=== PATIENT | female | born 1995 | race African-American/Black ===

== ENCOUNTER 2024-07-22 18:02 | Inpatient (IN) | payer MEDICAID, SELFPAY ==
--- NOTE | ~2024-07-22 | XR_ITS ---
EXAMINATION: XR chest 1V portable DATE: 07/24/2024 18:23 INDICATION: Chest discomfort. TECHNIQUE: A single frontal view of the chest was obtained. COMPARISON: CT abdomen and pelvis 07/23/2024 FINDINGS: There is no pneumonia, pleural effusion, or pneumothorax. The heart size is normal. IMPRESSION: 1. No acute cardiopulmonary disease. Reviewed, dictated and finalized at location A.
--- NOTE | ~2024-07-22 | US_ITS ---
EXAMINATION: US pelvic complete w TV DATE: 07/24/2024 14:51 INDICATION: Uterine fibroid. TECHNIQUE: Multiple transabdominal and transvaginal sonographic images of the pelvis were obtained. COMPARISON: CT abdomen and pelvis 07/23/2024 FINDINGS: TRANSABDOMINAL ULTRASOUND: The uterus measures 6.0 x 3.4 x 3.6 cm. There is physiologic free fluid in the pelvis. TRANSVAGINAL ULTRASOUND: The endometrial complex measures 8 mm in thickness. There is a 7.4 x 3.9 x 5.8 cm pedunculated fibroi d. The right ovary measures 2.6 x 1.3 x 2.2 cm. The left ovary measures 2.5 x 1.7 x 2.9 cm. There is normal vascular flow in the ovaries. IMPRESSION: 1. 7.4 cm pedunculated fibroid. Reviewed, dictated and finalized at location A.
--- NOTE | ~2024-07-22 | CT_ITS ---
CT of the Abdomen and Pelvis: Indication: Abdominal pain Technique: 2.5 mm axial scans were obtained through the abdomen and pelvis following intravenous adm inistration of 100 cc of Omnipaque 350. Dose reduction technique was used on this scan by utilizing a utomated exposure control and iterative reconstruction technique. The dose-length product (DLP) was 4 77.40 mGy-cm. Findings: Scans through the lung bases are unremarkable. The liver, spleen, pancreas, gallbladder, adrenals and kidneys are within normal limits. No evidence of aortic aneurysm. No lymphadenopathy. No bowel obstruction. No abscess or free air. Probable under distention of large bowel rather than wa ll thickening. Images through the pelvis were performed. Urinary bladder unremarkable. 6.7 x 4.5 cm probable exophyt ic fibroid present. No other adnexal mass seen. No ascites. Impression: Questionable diffuse large bowel infectious/inflammatory colitis versus underdistention. 6.7 x 4.5 cm exophytic fibroid. Reviewed, dictated and finalized at location . Impression: Questionable diffuse large bowel infectious/inflammatory colitis versus underdi stention. 6.7 x 4.5 cm exophytic fibroid.
--- NOTE | 2024-07-22 18:22 | PC.NURSE ---
Pt throwing herself against the wall & on the ground of entrance to ER, walked outside laying on bench
[2024-07-22 18:30] VITALS: BP 152/106; PULSE 89; RESP 25; TEMP 37; O2SAT 99
[2024-07-22 18:58] VITALS: BP 111/58; PULSE 115; RESP 15; TEMP 36.4; O2SAT 100
[2024-07-23] VITALS (13 sets, daily range): BP systolic 140–184; BP diastolic 82–132; PULSE 101–133; RESP 15–22; TEMP 36.3–36.7; O2SAT 91–100
[2024-07-23] MEDS: SODIUM CHLORIDE 0.9% IV 1,000 ML 999 ML IV CONT ×2 (02:23→03:30)
[2024-07-23] MEDS: ONDANSETRON INJ 4 MG/2 ML VIAL IV PUSH (02:23)
[2024-07-23 02:40] LABS: Basophils Percent Auto 0.1 % (0.2-1.2); Hematocrit 36.3 % (37.0-47.0); Immature Granulocyte Absolute 0.03 K/mm3 (0.00-0.031); Immature Granulocyte Percent A 0.4 % (0-0.5); Lymphocytes Absolute Auto 0.89 K/mm3 (0.9-3.2); Lymphocytes Percent Auto 10.5 % (18.3-44.2); Mean Corpuscular HGB Conc 33.1 g/dl (32-36); Mean Corpuscular Hemoglobin 27.7 pg (26-34); Mean Corpuscular Volume 83.8 fl (80-100); Mean Platelet Volume 9.6 fl (7.4-10.4); Monocytes Absolute Auto 0.2 K/mm3 (0.1-0.6); Monocytes Percent Auto 2.7 % (2.6-8.5); Neutrophils Absolute Auto 7.3 K/mm3 (1.3-6.7); Neutrophils Percent Auto 86.3 % (45.5-73.1); Platelet Count Result 409 k/mm3 (150-375); Red Blood Count 4.33 M/mm3 (4.2-5.4); Red Cell Distribution Width 13.2 % (11.5-14.5); White Blood Count 8.5 K/mm3 (4.5-10.0)
[2024-07-23 02:51] LABS: Alanine Aminotransferase 24 U/L (6-35); Alkaline Phosphatase 53 U/L (38-126); Anion Gap 18 mmol/L (4-12); Aspartate Amino Transferase 33 U/L (14-36); Blood Urea Nitrogen 21 mg/dL (7-17); Calcium 9.9 mg/dL (8.4-10.2); Carbon Dioxide 25 mmol/L (22-30); Chloride 93 mmol/L (98-107); Estimated Glomerular Filt Rate > 60; Glucose 147 mg/dL (65-110); Lipase 179 U/L (23-300); Magnesium 1.7 mg/dL (1.6-2.3); Potassium 3.6 mmol/L (3.4-5.0); Sodium 136 mmol/L (137-145)
[2024-07-23 02:55] LABS: Add Urine Microscopic? YES; Appearance Urine Clear (Clear); Bacteria Urine 1+ /hpf; Bilirubin Urine Negative (Negative); Blood Urine Negative (Negative); Color Urine Dark Yellow (Yellow); Glucose Urine UA Negative (Negative); Ketones Urine 4+ mg/dL (Negative); Leukocyte Esterase Ur Negative LEU/UL (Negative); Need Manual Microscopic Reviewed; Nitrate Urine Negative (Negative); Non Pathogenic Casts 0-2; Protein Urine 2+ mg/dL (Negative); Specific Grav Ur 1.038 (1.001-1.035); Squamous Epithelial Cell Urine Few /hpf (Few); WBC Urine 0-5 /hpf (0-3); pH Urine 6.5 (5.0-9.0)
[2024-07-23 02:57] LABS: Amphetamine Screen Urine Negative (Negative); Barbiturate Screen Urine Negative (Negative); Benzodiazepines Screen Urine Negative (Negative); Cannabinoid Screen Urine Positive (Negative); Cocaine Screen Urine Negative (Negative); Methadone Screen Urine Negative (Negative); Opiate Screen Urine Negative (Negative); Phencyclidine Screen Urine Negative (Negative)
[2024-07-23] MEDS: METOCLOPRAMIDE HCL INJ 10 MG/2 ML VIAL IV PUSH (03:29)
[2024-07-23] MEDS: MORPHINE SULFATE (*CRX) 4 MG/ML INJ IV PUSH (03:30)
[2024-07-23] MEDS: diphenhydrAMINE HCl INJ 50 MG/ML VIAL IV PUSH (05:04)
[2024-07-23] MEDS: MORPHINE SULFATE (*CRX) 2 MG/ML INJ IV PUSH ×5 (05:04→20:00)
--- NOTE | 2024-07-23 05:52 | ED.ABDPAIN ---
HPI - Abdominal Pain General Chief Complaint: Abdominal Pain Stated Complaint: abdominal pain Time Seen by Provider: 07/23/24 02:07 History of Present Illness HPI narrative: Patient is a 29-year-old female who presents to the emergency department this evening complaining of nausea, vomiting, and abdominal pain which she rates it a 10/10. Patient admits that she has been struggling with these symptoms for over 4 years and states that any time the symptoms flare-up she is to come to the emergency department due to the pain and inability to tolerate p.o. intake. Patient admits to marijuana use but states that she developed the symptoms even before she started smoking marijuana. She has been worked up for this multiple times and has an upcoming appointment with a painting machine operator for an EGD and a colonoscopy. Denies any fevers or chills at home. No additional symptoms concerns at this time. Related Data Allergies Allergy/AdvReac Type Severity Reaction Status Date / Time No Known Allergies Allergy Verified 07/23/24 04:37 Review of Systems Review of Systems: All systems are reviewed and are negative unless stated otherwise in the HPI. Exam Narrative: General: Alert, awake, afebrile, in moderate distress, appears uncomfortable. HEENT: PERRL, no rhinorrhea, no post nasal drip, oropharynx clear. Neck: Trachea midline, no JVD, no lymphadenopathy. Cardiovascular: Regular rate and rhythm, no murmurs, rubs or gallops, no peripheral edema. Respiratory: Clear to auscultation bilaterally, no tachypnea, no wheezing, no rhonchi, no rubs, no respiratory distress. Abdomen: Soft, nontender, nondistended, no rebound, no guarding, no peritoneal signs. Musculoskeletal: No joint swelling or deformity, normal muscle tone. Skin: No rashes or petechia, no signs of infection. Neurological: Alert and oriented to person, place, and time. Follows all commands. No focal deficits, speech is clear and fluent. Course Vital Signs Vital signs: Vital Signs Temperature 98.6 F 07/22/24 18:30 Pulse Rate 89 07/22/24 18:30 Respiratory Rate 25 H 07/22/24 18:30 Blood Pressure 152/106 H 07/22/24 18:30 Pulse Oximetry 99 07/22/24 18:30 Oxygen Delivery Room Air 07/22/24 18:30 Temperature 98.1 F 07/23/24 01:47 Pulse Rate 122 H 07/23/24 03:06 Respiratory Rate 15 07/23/24 03:06 Blood Pressure 172/96 H 07/23/24 03:06 Pulse Oximetry 100 07/23/24 03:06 Oxygen Delivery Room Air 07/22/24 18:30 MDM - Abdominal Pain MDM Narrative Medical decision making narrative: The patient was evaluated by myself in the emergency department. History is obtained from patient who is an independent historian and physical exam was performed. External medical records were reviewed at this time. IV was established and pertinent tests were ordered. Patient was administered 2 L IV fluid bolus with normal saline, 4 mg of IV morphine for pain and 4 mg IV Zofran for nausea. Laboratory results obtained revealing an anion gap of 18, otherwise unremarkable. Likely starvation ketosis. Urinalysis revealed 4+ ketones. Imaging studies obtained included CT abdomen and pelvis with IV contrast which was independently interpreted by me revealing mild colonic wall thickening concerning for colitis, which is pending final radiology interpretation. Differential diagnosis considerations include dehydration, electrolyte derangements, gastroenteritis. Comorbidities impacting this visit include history of cyclical vomiting syndrome. I have evaluated and discussed social determinants of health with the patient that could potentially impact subsequent diagnosis and treatment plans. On repeat assessment of the patient, patient continues complain of nausea, vomiting and abdominal pain at this time she was administered 10 mg of IV Reglan, 50 mg of IV Benadryl and 2 mg IV morphine. Patient symptoms have improved since she arrived to our emergency department, how
[2024-07-23] MEDS: SODIUM CHLORIDE 0.9% IV 1,000 ML 100 ML IV CONT (07:00)
[2024-07-23] MEDS: DICYCLOMINE HCL INJ 20 MG/2 ML VIAL IM (08:07)
--- NOTE | 2024-07-23 09:52 | ADMGEN ---
This patient, Alyssa Prescott, was admitted to [facility] Surg Room 306-02. Patient/family oriented to hospital policies and general routines including ID bracelet, bed and alarms, visiting hours, pain management, procedures, bathroom and other care routines, personal items, smoking policy, room service/diet, and visiting hours. Information on how to activate the Rapid Response Team has been discussed. Patient/Family are encouraged to report perceived risks to care and to ask questions if they do not understand what they are told or what they should do.
--- NOTE | 2024-07-23 10:09 | PM.IMHP ---
H&P: HPI History of Present Illness Date/Time: 07/23/24 10:09 Chief Complaint: Abdominal pain Narrative: Patient is a 29-year-old female who presents to the emergency department complaining of nausea, vomiting, and abdominal pain which she rates it a 10/10. Patient admits that she has been struggling with these symptoms for over 4 years and states that any time the symptoms flare-up she is to come to the emergency department due to the pain and inability to tolerate p.o. intake. Patient admits to marijuana use but states that she developed the symptoms even before she started smoking marijuana. In the ED patient received 10 mg of IV Reglan, 50 mg of IV Benadryl and 2 mg IV morphine. She has been worked up for this multiple times and has an upcoming appointment with a clinical statistical programmer for an EGD and a colonoscopy. Patient reports of having sometimes watery bowel movement for the past few years. Denies any association with the blood. No family history of Crohn's disease or ulcerative colitis. No history of taking aspirin or ibuprofen. CT scan shows diffuse large mobile infectious/inflammatory colitis versus under distention. Patient is also has fibroid. Patient aware of the fibroid. Patient was started on antibiotic ceftriaxone and Flagyl. Patient still complains of pain in spite of receiving morphine. Gastroenterology has been consulted and following the recommendation. Review of Systems Review of Systems: All systems are reviewed and are negative unless stated otherwise in the HPI. [facility] Family History Family History (Updated 07/23/24 @ 07:04 by Emily Abebe RN) Grandparent Diabetes mellitus Cerebrovascular accident Social History Social History Smoking status: Current every day smoker Smokeless tobacco user: other Additional smoking assessment comments: daily use of marijuana Alcohol intake: never Substance use type: marijuana Last use: 07/22/24 Do You Feel Safe in your Home?: Yes Lack of Transportation: No Lack of Food: Never True Current Housing: I Have Housing Concerned About Future Housing: No Difficulty Paying Gas/Electric Bills: No Difficulty Paying for Meds: No Currently Unemployed: No Education: High School Diploma/GED Difficulty w/ Childcare or Family Care: No Spiritual care concerns: No Meds Home Medications and Allergies Home Medications Medication Instructions Recorded Confirmed Type pantoprazole 20 mg tablet,delayed 20 mg PO QAM 07/23/24 07/23/24 History release sodium chloride 1,000 mg soluble 1,000 mg PO DAILY 07/23/24 07/23/24 History tablet Allergies Allergy/AdvReac Type Severity Reaction Status Date / Time No Known Allergies Allergy Verified 07/23/24 06:56 Vital Signs Vital Signs - 24 hr 07/22/24 18:58 07/22/24 18:30 07/23/24 01:47 Temperature 97.6 F 98.6 F 98.1 F Pulse Rate 115 H 89 133 H Respiratory Rate 15 25 H 15 Blood Pressure 111/58 L 152/106 H 173/132 H Pulse Oximetry 100 99 100 Oxygen Delivery Room Air 07/23/24 03:06 07/23/24 06:50 07/23/24 03:09 Temperature Pulse Rate 122 H 117 H Respiratory Rate 15 15 18 Blood Pressure 172/96 H 168/104 H Pulse Oximetry 100 100 91 Oxygen Delivery 07/23/24 03:17 07/23/24 03:56 07/23/24 04:00 Temperature Pulse Rate 130 H 122 H 114 H Respiratory Rate 18 20 19 Blood Pressure Pulse Oximetry Oxygen Delivery 07/23/24 04:15 07/23/24 09:30 07/23/24 09:52 Temperature Pulse Rate 107 H Respiratory Rate 15 Blood Pressure 184/112 H 140/100 H Pulse Oximetry Oxygen Delivery Exam Narrative: General: Alert, awake, afebrile, in moderate distress, appears uncomfortable. HEENT: PERRL, no rhinorrhea, no post nasal drip, oropharynx clear. Neck: Trachea midline, no JVD, no lymphadenopathy. Cardiovascular: Regular rate and rhythm, no murmurs, rubs or gallops, no pe
[2024-07-23] MEDS: PANTOPRAZOLE SODIUM IV 40 MG VIAL IV PUSH ×2 (10:33→20:01)
[2024-07-23] MEDS: metroNIDAZOLE 500 MG/ISO 100ML 500 MG/100 ML BAG 100 MG IVPB ×2 (11:11→17:59)
[2024-07-23 11:37] LABS: BEDSIDEPREGUCG Negative
[2024-07-23 14:00] LABS: Ethanol < 10 mg/dL (<10)
[2024-07-23] MEDS: DICYCLOMINE HCL 10 MG CAPSULE 20 MG PO (20:56)
[2024-07-23] MEDS: MELATONIN 5 MG TABLET PO (20:57)
[2024-07-23] MEDS: KETOROLAC 30 MG/ML VIAL (*BKC) IV PUSH (20:57)
[2024-07-23 22:18] LABS: Lactic Acid Reflex 0.8 mmol/L (0.7-2.0)
--- NOTE | 2024-07-23 22:32 | PC.NURSE ---
Pt was in the [place] way with her IV pole and coming to the desk, crying, yelling, and throwing herself around. I asked her what was wrong, she stated, what do you think, I am in pain! Pt proceeded to throw herself into the hallway wall, grabbing the rail and yelling out. Pt was instructed to return to her room. Pt's mother present and standing in doorway watching pt behave this way. Pt's mother states this has been going on for 4 yrs. Pt insisting 2mg of morphine wasn't helping and she needed something else. 1x dose of toradol added, and melatonin. Pt back in room and in bed currently. Educated pt, on pain medications and to notify the nurse if needed vs. coming out into the church yelling, crying, and throwing herself against the wall. Heating pad also added to pt's pain control plan.
[2024-07-24] VITALS (11 sets, daily range): BP systolic 113–196; BP diastolic 66–122; PULSE 85–119; RESP 15–20; TEMP 36.4–36.7; O2SAT 97–100; BMI 27.7
[2024-07-24] MEDS: HYDROmorphone HCL INJ (*CRX) 1 MG/ML SYR 0.5 MG IV PUSH ×6 (01:34→20:20)
[2024-07-24] MEDS: SODIUM CHLORIDE 0.9% IV 1,000 ML 100 ML IV CONT ×3 (01:35→20:27)
[2024-07-24] MEDS: metroNIDAZOLE 500 MG/ISO 100ML 500 MG/100 ML BAG 100 MG IVPB ×3 (01:37→18:22)
[2024-07-24] MEDS: hydrALAZINE HCL 20 MG/ML VIAL 10 MG IV PUSH ×2 (02:12→15:05)
[2024-07-24] MEDS: LORazepam INJ (*CRX) 2 MG/ML VIAL 1 MG IV PUSH (02:14)
[2024-07-24 06:36] LABS: Hematocrit 37.5 % (37.0-47.0); Mean Corpuscular Hemoglobin 27.2 pg (26-34); Mean Platelet Volume 9.6 fl (7.4-10.4); Platelet Count Result 384 k/mm3 (150-375); Red Blood Count 4.41 M/mm3 (4.2-5.4); Red Cell Distribution Width 13.3 % (11.5-14.5)
[2024-07-24 06:48] LABS: Alanine Aminotransferase 19 U/L (6-35); Albumin Level 4.5 g/dL (3.5-5.1); Alkaline Phosphatase 51 U/L (38-126); Anion Gap 15 mmol/L (4-12); Aspartate Amino Transferase 34 U/L (14-36); Bilirubin,Total 0.9 mg/dL (0.2-1.3); Blood Urea Nitrogen 12 mg/dL (7-17); Calcium 9.4 mg/dL (8.4-10.2); Carbon Dioxide 22 mmol/L (22-30); Chloride 95 mmol/L (98-107); Estimated Glomerular Filt Rate > 60; Glucose 102 mg/dL (65-110); Lipase 102 U/L (23-300); Potassium 3.4 mmol/L (3.4-5.0); Sodium 132 mmol/L (137-145)
--- NOTE | 2024-07-24 08:04 | WPDCN ---
Assessment and Plan Assessment and plan (1) Uterine fibroid: Code(s): D25.9 - Leiomyoma of uterus, unspecified Status: Acute Assessment and Plan: 29-year-old female who presented to the hospital with acute onset abdominal pain, nausea, vomiting Patient currently being treated for colitis with antibiotics in IV pain medication CT scan showed a large pedunculated fibroid Patient is aware of this fibroid. Patient states the fibroid has been asymptomatic for several years She denies any bleeding abnormalities 6.7 x 4.5 cm exophytic fibroid Seen on CT Pelvic ultrasound ordered for this a.m. to evaluate uterine fibroid further Discussed manage med options of uterine fibroids Patient declines hormonal contraceptives Discussed potential for myomectomy Would recommend resolution of colitis prior to performing any surgery Would recommend continuing p.o. pain medications on discharge Will discuss surgical management outpatient HPI Data of Consult Date/Time: 07/24/24 08:04 Requesting Physician: Jesus Hastings MD Primary Care Provider: PHYSICIAN NOT ON STAFF Consult Narrative Narrative: Alyssa Prescott is a 29 year old female who was admitted to the hospital after an episode of acute abdominal pain, nausea and vomiting. Imaging showed diffuse colitis and patient is being managed with antibiotics. Imaging also showed a pedunculated fibroid from the uterine body. Patient continues to have intermittent severe abdominal pain despite morphine. Patient resting comfortably in bed this morning. Patient states she has Known about this uterine fibroid for several years. patient states the fibroid was always asymptomatic. Patient reports regular monthly menses. She denies any heavy menstrual bleeding. Patient was offered hormonal contraceptives in the past. Patient is not interested in hormonal contraceptives. Review of Systems Review of Systems: All systems reviewed & are unremarkable except as noted in HPI and below PMFSH Family History Family History (Updated 07/23/24 @ 07:04 by Emily Abebe RN) Grandparent Diabetes mellitus Cerebrovascular accident Social History Social History Smoking status: Current every day smoker Smokeless tobacco user: other Additional smoking assessment comments: daily use of marijuana Alcohol intake: never Substance use type: marijuana Last use: 07/22/24 Do You Feel Safe in your Home?: Yes Lack of Transportation: No Lack of Food: Never True Current Housing: I Have Housing Concerned About Future Housing: No Difficulty Paying Gas/Electric Bills: No Difficulty Paying for Meds: No Currently Unemployed: No Education: High School Diploma/GED Difficulty w/ Childcare or Family Care: No Spiritual care concerns: No Meds Home Medications and Allergies Home Medications Medication Instructions Recorded Confirmed Type pantoprazole 20 mg tablet,delayed 20 mg PO QAM 07/23/24 07/23/24 History release sodium chloride 1,000 mg soluble 1,000 mg PO DAILY 07/23/24 07/23/24 History tablet Allergies Allergy/AdvReac Type Severity Reaction Status Date / Time No Known Allergies Allergy Verified 07/23/24 06:56 Vital Signs Vital Signs - 24 hr 07/23/24 09:30 07/23/24 09:52 07/23/24 18:09 Temperature Pulse Rate Respiratory Rate Blood Pressure 184/112 H 140/100 H 154/117 H Pulse Oximetry Oxygen Delivery 07/23/24 20:00 07/23/24 22:00 07/24/24 01:29 Temperature 97.3 F L Pulse Rate 101 H 101 H Respiratory Rate 22 H Blood Pressure 178/82 H 196/104 H Pulse Oximetry 99 Oxygen Delivery Room Air 07/24/24 03:16 07/23/24 22:06 07/24/24 06:00 Temperature 98 F Pulse Rate 119 H Respiratory Rate 20 Blood Pressure 136/68 162/92 H Pulse Oximetry 99 100 Oxygen Delivery Room Air Exam Const: General: coope
[2024-07-24] MEDS: PANTOPRAZOLE SODIUM IV 40 MG VIAL IV PUSH (08:37)
[2024-07-24] MEDS: ENOXAPARIN 40 MG/0.4 ML SYRINGE SUB-Q (08:37)
--- NOTE | 2024-07-24 09:23 | P.CONGI_ITS ---
I, Simeon Parkinson MD, have provided a substantive portion of the care of this patient and discussed the patient with my Nurse Practitioner. I have reviewed any new relevant radiographic and laboratory results including medications. I agree with her documentation as noted below.?I personally performed the medical decision making and much of the history and exam for this encounter. briefly, here with several days of nausea and vomiting, she had previous episodes, never had EGD. Also uses marijuana. CT scan showed possible colitis vs underdistension- no diarrhea, no lower abdominal pain and no previous epidose of colitis but started on antibiotics. Clinically does not look she had colitis. Will proceed with EGD to assess if PUD, etc. Probably will need colonoscopy as outpatient. Also noted uterine fibroid. Assessment and Plan Assessment and plan (1) Epigastric pain: Code(s): R10.13 - Epigastric pain Status: Acute (2) Nausea & vomiting: Qualifiers: Vomiting type: bilious vomiting Qualified Code(s): R11.14 - Bilious vomiting Code(s): R11.2 - Nausea with vomiting, unspecified Status: Acute (3) Colitis: Code(s): K52.9 - Noninfective gastroenteritis and colitis, unspecified Status: Acute (4) Melena: Code(s): K92.1 - Melena Status: Acute (5) Hyponatremia: Code(s): E87.1 - Hypo-osmolality and hyponatremia Status: Acute (6) Uterine fibroid: Qualifiers: Uterine leiomyoma location: unspecified location Qualified Code(s): D25.9 - Leiomyoma of uterus, unspecified Code(s): D25.9 - Leiomyoma of uterus, unspecified Status: Acute Plan 1. Epigastric abdominal pain/Nausea/Vomiting/Dark stools: Patient admits to intermittent episodes of epigastric pain, nausea, and dark stools that has been occurring over the past 4 years. These episodes typically occur 1 to 2 times a year and can last for a few days before resolving without intervention. She is having nausea that has improved since admission but not resolved. patient states that prior to her ER visit her abdominal pain was rated 10/10. She is still having significant abdominal pain despite pain medication. Denies any recent vomiting. Denies any NSAID, aspirin, or anticoagulant use. She smokes marijuana regularly but denies any correlation with marijuana and symptoms.The patient's symptoms are concerning for possible gastric ulcer or other upper GI pathology. * EGD planned for today to evaluate for possible gastric ulcer or other upper GI pathology * Continue Protonix 40 mg b.i.d. * keep patient NPO * continue supportive care with pain management and antiemetics * Further recommendations to follow endoscopy 2. Possible colitis: Patient has never had a colonoscopy. Family history negative for CRC or IBD. CT findings suggest possible infectious/inflammatory colitis versus underdistention. Patient denies any recent change in bowel habits. She is having regular bowel movements typically every day that are formed and non urgent. Stool studies previously ordered. gynecology on patient's case who recommends colitis treatment prior to considering outpatient uterine fibroid surgery. Abdominal pain does not seem to correlate with CT findings , unlikely that the severity of pain that she is experiencing correlates with mild colitis presentation. stool study results pending * Continue current antibiotic treatment * Monitor symptoms and response to treatment * Consider colonoscopy outpatient if symptoms persist or worsen 3. Uterine fibroid: 6.7 x 4.5 cm exophytic fibroid not
--- NOTE | 2024-07-24 09:23 | WPDGICN ---
Assessment and Plan Assessment and plan (1) Epigastric pain: Code(s): R10.13 - Epigastric pain Status: Acute (2) Nausea & vomiting: Qualifiers: Vomiting type: bilious vomiting Qualified Code(s): R11.14 - Bilious vomiting Code(s): R11.2 - Nausea with vomiting, unspecified Status: Acute (3) Colitis: Code(s): K52.9 - Noninfective gastroenteritis and colitis, unspecified Status: Acute (4) Melena: Code(s): K92.1 - Melena Status: Acute (5) Hyponatremia: Code(s): E87.1 - Hypo-osmolality and hyponatremia Status: Acute (6) Uterine fibroid: Qualifiers: Uterine leiomyoma location: unspecified location Qualified Code(s): D25.9 - Leiomyoma of uterus, unspecified Code(s): D25.9 - Leiomyoma of uterus, unspecified Status: Acute Plan 1. Epigastric abdominal pain/Nausea/Vomiting/Dark stools: Patient admits to intermittent episodes of epigastric pain, nausea, and dark stools that has been occurring over the past 4 years. These episodes typically occur 1 to 2 times a year and can last for a few days before resolving without intervention. She is having nausea that has improved since admission but not resolved. patient states that prior to her ER visit her abdominal pain was rated 10/10. She is still having significant abdominal pain despite pain medication. Denies any recent vomiting. Denies any NSAID, aspirin, or anticoagulant use. She smokes marijuana regularly but denies any correlation with marijuana and symptoms.The patient's symptoms are concerning for possible gastric ulcer or other upper GI pathology. EGD planned for today to evaluate for possible gastric ulcer or other upper GI pathology Continue Protonix 40 mg b.i.d. keep patient NPO continue supportive care with pain management and antiemetics Further recommendations to follow endoscopy 2. Possible colitis: Patient has never had a colonoscopy. Family history negative for CRC or IBD. CT findings suggest possible infectious/inflammatory colitis versus underdistention. Patient denies any recent change in bowel habits. She is having regular bowel movements typically every day that are formed and non urgent. Stool studies previously ordered. gynecology on patient's case who recommends colitis treatment prior to considering outpatient uterine fibroid surgery. Abdominal pain does not seem to correlate with CT findings , unlikely that the severity of pain that she is experiencing correlates with mild colitis presentation. stool study results pending Continue current antibiotic treatment Monitor symptoms and response to treatment Consider colonoscopy outpatient if symptoms persist or worsen 3. Uterine fibroid: 6.7 x 4.5 cm exophytic fibroid noted on CT. Gynecology has recommended outpatient surgical management after acute colitis is treated Thank you very much for allowing me to share in the care this very nice patient. This report may have been done utilizing a voice recognition system. Attempts have been made to correct errors. However, there may be uncorrected grammatical, spelling, and recognition errors present. GI Consult Note Consult date/time: 07/24/24 09:23 Reason for consult: Colitis HPI: This is a pleasant 29-year-old female with a past medical surgical history of asthma who presents to the office today for evaluation of abdominal pain, nausea, and vomiting. She was seen in the emergency room yesterday for these complaints and GI was consulted for colitis. The patient reports intermittent sharp upper abdominal pain occurring 1-2 times per year for the past 4 years, lasting for a few days each episode. The pain is not affected by eating but improves at time with BM's. She reports reflux symptoms when she feels like she's about to vomit, but this is not a regular occurrence. The patient has noticed dark brown stools coinciding with the pain episodes.
[2024-07-24] MEDS: LACTATED RINGERS 1,000 ML 150 ML IV CONT (11:41)
[2024-07-24] MEDS: LABETALOL HCL INJ 100 MG/20 ML VIAL IV PUSH ×2 (11:45→12:12)
[2024-07-24] MEDS: ONDANSETRON INJ 4 MG/2 ML VIAL IV PUSH (12:11)
--- NOTE | 2024-07-24 13:20 | WPDCN ---
Assessment and Plan Assessment and plan (1) Abdominal pain: Code(s): R10.9 - Unspecified abdominal pain Status: Acute Assessment and Plan: patient's abdominal pain seems to be out of proportion to the objective imaging and exam. She has had this chronic pain for several years. She sometimes has issues where she cannot take p.o. because she has so much nausea. GI has seen her and plans on endoscopy. CT scan shows possible colitis which she has been started on IV antibiotics to treat. There certainly is no evidence of pneumatosis of the wall of colon or perforation or abscess. She has a fibroid on the uterus and sales engagement executive has been consulted. The gallbladder appears normal. It does not appear to have a surgical abdomen. Management as per the providers. HPI Data of Consult Date/Time: 07/23/24 Requesting Physician: Jesus Hastings MD Primary Care Provider: PHYSICIAN NOT ON STAFF Consult Narrative Reason for consult: Severe abdominal pain Narrative: Alysas Prescott is a 29 year old female who was admitted to the hospital yesterday for severe abdominal pain. And she has had this pain in 1 form or another for 4 to 5 years. She has been to multiple hospitals with workup for this pain. She was admitted to [facility] this time after CT scan showed possible colitis versus underdistention colic. Gallbladder appeared normal. Stomach appeared to be normal. No other acute findings in the abdomen was noted. In the pelvis a fibroid was noted coming from the uterus. Normal white blood cell count. No fever. Review of Systems Review of Systems: The remainder of the review of systems to include constitutional, HEENT, cardiovascular, respiratory, GI, , integumentary, musculoskeletal, endocrine, immunologic, hematologic, psychiatric, and neurologic are all negative except for which is mentioned above in the HPI. [facility] Family History Family History Grandparent Diabetes mellitus Cerebrovascular accident Social History Social History Smoking status: Current every day smoker Smokeless tobacco user: other Additional smoking assessment comments: daily use of marijuana Alcohol intake: never Substance use type: marijuana Last use: 07/22/24 Do You Feel Safe in your Home?: Yes Lack of Transportation: No Lack of Food: Never True Current Housing: I Have Housing Concerned About Future Housing: No Difficulty Paying Gas/Electric Bills: No Difficulty Paying for Meds: No Currently Unemployed: No Education: High School Diploma/GED Difficulty w/ Childcare or Family Care: No Spiritual care concerns: No Meds Home Medications and Allergies Home Medications Medication Instructions Recorded Confirmed Type pantoprazole 20 mg tablet,delayed 20 mg PO QAM 07/23/24 07/23/24 History release sodium chloride 1,000 mg soluble 1,000 mg PO DAILY 07/23/24 07/23/24 History tablet Allergies Allergy/AdvReac Type Severity Reaction Status Date / Time No Known Allergies Allergy Verified 07/24/24 11:36 Vital Signs Vital Signs - 24 hr 07/23/24 18:09 07/23/24 20:00 07/23/24 22:00 Temperature 36.3 C L Pulse Rate 101 H Respiratory Rate 22 H Blood Pressure 154/117 H 178/82 H Pulse Oximetry 99 Oxygen Delivery Room Air 07/24/24 01:29 07/24/24 03:16 07/23/24 22:06 Temperature Pulse Rate 101 H Respiratory Rate Blood Pressure 196/104 H 136/68 Pulse Oximetry 99 Oxygen Delivery Room Air 07/24/24 06:00 07/24/24 11:37 07/24/24 11:45 Temperature 36.6 C 36.6 C Pulse Rate 119 H 112 H 112 H Respiratory Rate 20 16 Blood Pressure 162/92 H 170/122 H Pulse Oximetry 100 100 Oxygen Delivery Room Air 07/24/24 12:06 07/24/24 08:00 07/24/24 12:48 Temperature Pulse Rate 88 91 Respiratory Rate 20 Blood Pressure 177/111 H
[2024-07-24] MEDS: DICYCLOMINE HCL 10 MG CAPSULE 20 MG PO ×2 (13:59→20:19)
--- NOTE | 2024-07-24 15:12 | PM.IMPN ---
Progress Note: A&P Assessment and Plan (1) Acute dehydration: Code(s): E86.0 - Dehydration Status: Acute (2) Nausea & vomiting: Qualifiers: Vomiting type: bilious vomiting Qualified Code(s): R11.14 - Bilious vomiting Code(s): R11.2 - Nausea with vomiting, unspecified Status: Acute (3) Colitis: Code(s): K52.9 - Noninfective gastroenteritis and colitis, unspecified Status: Acute Plan # Colitis inflammatory vs infectious -underwent EGD today which shows no significant findings -started ceftriaxone and metronidazole -no history of using aspirin or NSAIDs -pantoprazole 40 mg every 12 hours -ordered stool studies ,calprotectin, H pylori, tissue transglutaminase -Bentyl 20 mg q.i.d. p.r.n. -Dilaudid 0.5 q.3 hours p.r.n. -patient pain medication will be de-escalated tomorrow -no evidence of pneumatosis of the wall of colon or perforation or abscess -surgery recommends medical management -consult GI and following the recommendation. #Fibroid -patient is aware of the fibroid -follow-up with OB Gyne as an outpatient as per Solution Developer CT scan showed a large pedunculated fibroid Patient is aware of this fibroid. Patient states the fibroid has been asymptomatic for several years She denies any bleeding abnormalities 6.7 x 4.5 cm exophytic fibroid Seen on CT Pelvic ultrasound ordered for this a.m. to evaluate uterine fibroid further Discussed manage med options of uterine fibroids Patient declines hormonal contraceptives Discussed potential for myomectomy Would recommend resolution of colitis prior to performing any surgery Would recommend continuing p.o. pain medications on discharge Will discuss surgical management outpatient [facility] Impressions Abdomen/Pelvis CT 07/23/24 05:58 Impression: Questionable diffuse large bowel infectious/inflammatory colitis versus underdistention. 6.7 x 4.5 cm exophytic fibroid. Subjective Date/time seen: 07/24/24 15:12 Interval history: Patient was examined at the bedside. Patient reports that she is tired. Patient is less anxious than his stated. Patient was able evaluated by OB Gyne and surgery. Possible myomectomy as OP. Patient underwent upper endoscopy which shows normal. Review of Systems Review of Systems: All systems are reviewed and are negative unless stated otherwise in the HPI. Exam Narrative: General: Alert, awake, afebrile, in moderate distress, appears uncomfortable. HEENT: PERRL, no rhinorrhea, no post nasal drip, oropharynx clear. Neck: Trachea midline, no JVD, no lymphadenopathy. Cardiovascular: Regular rate and rhythm, no murmurs, rubs or gallops, no peripheral edema. Respiratory: Clear to auscultation bilaterally, no tachypnea, no wheezing, no rhonchi, no rubs, no respiratory distress. Abdomen: Soft, nontender, nondistended, no rebound, no guarding, no peritoneal signs. Musculoskeletal: No joint swelling or deformity, normal muscle tone. Skin: No rashes or petechia, no signs of infection. Neurological: Alert and oriented to person, place, and time. Follows all commands. No focal deficits, speech is clear and fluent. Objective Data Vital Signs Vital Signs: Vital Signs - 24 hr 07/23/24 18:09 07/23/24 20:00 07/23/24 22:00 Temperature 97.3 F L Pulse Rate 101 H Respiratory Rate 22 H Blood Pressure 154/117 H 178/82 H Pulse Oximetry 99 Oxygen Delivery Room Air 07/24/24 01:29 07/24/24 03:16 07/23/24 22:06 Temperature Pulse Rate 101 H Respiratory Rate Blood Pressure 196/104 H 136/68 Pulse Oximetry 99 Oxygen Delivery Room Air 07/24/24 06:00 07/24/24 11:37 07/24/24 11:45 Temperature 98 F 97.9 F Pulse Rate 119 H 112 H 112 H Respiratory Rate 20 16 Blood Pressure 162/92 H 170/122 H Pulse Oximetry 100 100 Oxygen Delivery Room Air 07/24/24 12:06 07/24/24 08:00 07/24/24 12:48 Temperature Pulse Rate 88 91 Respiratory Rate 20 Blood Pr
--- NOTE | 2024-07-24 18:03 | ECG_ITS ---
Test Date: 2024-07-24 18:41:46 Measurements Intervals Horner Rate: 106 P: 56 IL: 138 QRS: 34 QRSD: 87 T: 31 QT: 328 QTc: 437 Interpretive Statements SINUS TACHYCARDIA OTHERWISE NORMAL ELECTROCARDIOGRAM No previous ECG available for comparison Electronically Signed On 07-25-2024 07:29:07 CDT by Ji Castellano M.D.
[2024-07-24] MEDS: MELATONIN 5 MG TABLET PO (20:20)
[2024-07-25] MEDS: HYDROmorphone HCL INJ (*CRX) 1 MG/ML SYR 0.5 MG IV PUSH ×8 (00:59→23:07)
[2024-07-25] MEDS: metroNIDAZOLE 500 MG/ISO 100ML 500 MG/100 ML BAG 100 MG IVPB ×3 (04:04→18:19)
[2024-07-25 06:45] VITALS: BP 176/98; PULSE 111; RESP 18; TEMP 36.4; O2SAT 100
[2024-07-25] MEDS: hydrALAZINE HCL 20 MG/ML VIAL 10 MG IV PUSH ×2 (06:59→14:59)
[2024-07-25] MEDS: DICYCLOMINE HCL 10 MG CAPSULE 20 MG PO (08:53)
[2024-07-25] MEDS: ENOXAPARIN 40 MG/0.4 ML SYRINGE SUB-Q (08:53)
[2024-07-25] MEDS: PANTOPRAZOLE 40 MG TABLET PO (08:53)
[2024-07-25 08:57] LABS: Hematocrit 36.4 % (37.0-47.0); Hemoglobin 11.6 g/dL (12.0-15.0); Mean Corpuscular HGB Conc 31.9 g/dl (32-36); Mean Corpuscular Hemoglobin 27.2 pg (26-34); Mean Corpuscular Volume 85.4 fl (80-100); Mean Platelet Volume 9.6 fl (7.4-10.4); Platelet Count Result 386 k/mm3 (150-375); Red Blood Count 4.26 M/mm3 (4.2-5.4); Red Cell Distribution Width 13.3 % (11.5-14.5); White Blood Count 6.5 K/mm3 (4.5-10.0)
--- NOTE | 2024-07-25 09:02 | WPDANESPN ---
Anes - Prog Note Post-Op Date/Time: 07/25/24 09:02 Cardiovascular status: normal Respiratory status: normal Airway patency: baseline Mental status: baseline Post-Op hydration status: normal Vital Signs: Last Vital Signs Temp 36.4 C 07/25/24 06:45 Pulse 111 H 07/25/24 06:45 Resp 18 07/25/24 06:45 BP 176/98 H 07/25/24 06:45 Pulse Ox 100 07/25/24 06:45 O2 Del Method Room Air 07/24/24 20:00 Pain Score (VAS): 0 I/O: Intake & Output 07/24/24 07/25/24 07/25/24 23:59 07:59 15:59 Intake Total 880 472 Balance 880 472 07/25/24 08:00 WBC Pending RBC Pending Hgb Pending Hct Pending MCV Pending MCH Pending MCHC Pending RDW Pending Plt Count Pending MPV Pending Sodium Pending Potassium Pending Chloride Pending Carbon Dioxide Pending Anion Gap Pending BUN Pending Creatinine Pending Estim Creat Clear Calc Pending Estimated GFR Pending Glucose Pending Calcium Pending Total Bilirubin Pending AST Pending ALT Pending Alkaline Phosphatase Pending Total Protein Pending Albumin Pending Post-procedural complaints: none Patient Feedback: Patient satisfied with anesthetic care.
[2024-07-25 09:31] LABS: Alanine Aminotransferase 16 U/L (6-35); Albumin Level 4.2 g/dL (3.5-5.1); Alkaline Phosphatase 44 U/L (38-126); Anion Gap 11 mmol/L (4-12); Aspartate Amino Transferase 32 U/L (14-36); Bilirubin,Total 0.8 mg/dL (0.2-1.3); Blood Urea Nitrogen 9 mg/dL (7-17); Calcium 8.7 mg/dL (8.4-10.2); Carbon Dioxide 24 mmol/L (22-30); Chloride 95 mmol/L (98-107); Estimated CRCL calculation 124 ml/min; Estimated Glomerular Filt Rate > 60; Glucose 107 mg/dL (65-110); Potassium 3.2 mmol/L (3.4-5.0); Sodium 130 mmol/L (137-145)
[2024-07-25] MEDS: SIMETHICONE 80 MG TAB.CHEW PO ×3 (13:16→20:09)
[2024-07-25 14:00] VITALS: BP 174/122; PULSE 110; RESP 18; TEMP 36.2; O2SAT 97
--- NOTE | 2024-07-25 14:50 | PM.IMPN ---
Progress Note: A&P Assessment and Plan (1) Acute dehydration: Code(s): E86.0 - Dehydration Status: Acute (2) Nausea & vomiting: Qualifiers: Vomiting type: bilious vomiting Qualified Code(s): R11.14 - Bilious vomiting Code(s): R11.2 - Nausea with vomiting, unspecified Status: Acute (3) Colitis: Code(s): K52.9 - Noninfective gastroenteritis and colitis, unspecified Status: Acute Plan # Colitis inflammatory vs infectious -underwent EGD today which shows no significant findings -started ceftriaxone and metronidazole -no history of using aspirin or NSAIDs -pantoprazole 40 mg every 12 hours -ordered stool studies ,calprotectin, H pylori, tissue transglutaminase -Bentyl 20 mg q.i.d. p.r.n. -Dilaudid 0.5 q.3 hours p.r.n. -patient pain medication will be de-escalated tomorrow -no evidence of pneumatosis of the wall of colon or perforation or abscess -surgery recommends medical management -consult GI and following the recommendation. #Fibroid -patient is aware of the fibroid -follow-up with OB Gyne as an outpatient as per Sales Manager CT scan showed a large pedunculated fibroid Patient is aware of this fibroid. Patient states the fibroid has been asymptomatic for several years She denies any bleeding abnormalities 6.7 x 4.5 cm exophytic fibroid Seen on CT Pelvic ultrasound ordered for this a.m. to evaluate uterine fibroid further Discussed manage med options of uterine fibroids Patient declines hormonal contraceptives Discussed potential for myomectomy Would recommend resolution of colitis prior to performing any surgery Would recommend continuing p.o. pain medications on discharge Will discuss surgical management outpatient [facility] Impressions Abdomen/Pelvis CT 07/23/24 05:58 Impression: Questionable diffuse large bowel infectious/inflammatory colitis versus underdistention. 6.7 x 4.5 cm exophytic fibroid. Subjective Date/time seen: 07/25/24 14:50 Interval history: Patient reports of doing better than yesterday but still she has some pain. As the case with Dr. Gutiérrez who reports that the upper endoscopy is fine. Currently the patient is tolerating diet and will be likely discharged tomorrow. Review of Systems Review of Systems: All systems are reviewed and are negative unless stated otherwise in the HPI. Exam Narrative: General: Alert, awake, afebrile, in moderate distress, appears uncomfortable. HEENT: PERRL, no rhinorrhea, no post nasal drip, oropharynx clear. Neck: Trachea midline, no JVD, no lymphadenopathy. Cardiovascular: Regular rate and rhythm, no murmurs, rubs or gallops, no peripheral edema. Respiratory: Clear to auscultation bilaterally, no tachypnea, no wheezing, no rhonchi, no rubs, no respiratory distress. Abdomen: Soft, nontender, nondistended, no rebound, no guarding, no peritoneal signs. Musculoskeletal: No joint swelling or deformity, normal muscle tone. Skin: No rashes or petechia, no signs of infection. Neurological: Alert and oriented to person, place, and time. Follows all commands. No focal deficits, speech is clear and fluent. Objective Data Vital Signs Vital Signs: Vital Signs - 24 hr 07/24/24 20:00 07/24/24 21:05 07/25/24 06:45 Temperature 98.1 F 97.6 F Pulse Rate 113 H 111 H Respiratory Rate 16 18 Blood Pressure 158/98 H 176/98 H Pulse Oximetry 99 100 Oxygen Delivery Room Air 07/25/24 08:00 Temperature Pulse Rate Respiratory Rate Blood Pressure Pulse Oximetry Oxygen Delivery Room Air Intake/Output Intake/Output: Intake & Output 07/22/24 07/23/24 07/24/24 07/25/24 23:59 23:59 23:59 23:59 Intake Total 2250 3030 722 Balance 2250 3030 722 Meds/Results Medications: Active Medications Generic Name Dose Route Start Last Admin Trade Name Freq PRN Reason Stop Dose Admin Dicyclomine HCl 20 mg 07/23/24 20:19 07/25/24 08:53 Dicyclomine Hcl 10 Mg Capsule PO
[2024-07-25] MEDS: CALCIUM CARBONATE (TUMS) 500 MG (200 MG ELEMENTAL) PO (15:41)
[2024-07-25] MEDS: ONDANSETRON INJ 4 MG/2 ML VIAL IV PUSH ×2 (15:41→20:10)
[2024-07-25] MEDS: amLODIPine BESYLATE 10 MG TABLET PO (15:41)
--- NOTE | 2024-07-25 18:18 | WPDGIPROGNO ---
Progress Note: A&P Assessment and Plan (1) Cyclic vomiting syndrome: Code(s): R11.15 - Cyclical vomiting syndrome unrelated to migraine Status: Acute Assessment and Plan: presentation c/w cyclic vomiting needs to stop using marijuana fluids, antiemetics egd negative when able to eat more then can go home (2) Marijuana dependence: Code(s): F12.20 - Cannabis dependence, uncomplicated Status: Acute (3) Abdominal pain: Code(s): R10.9 - Unspecified abdominal pain Status: Acute Assessment and Plan: I do not think that she has colitis, started empirically on abx probably we can do colonoscopy in few more weeks as outpatient (4) Hyponatremia: Code(s): E87.1 - Hypo-osmolality and hyponatremia Status: Acute (5) Uterine fibroid: Qualifiers: Uterine leiomyoma location: unspecified location Qualified Code(s): D25.9 - Leiomyoma of uterus, unspecified Code(s): D25.9 - Leiomyoma of uterus, unspecified Status: Acute Subjective Date/time seen: 07/25/24 18:18 Interval history: normal egd yesterday including biopsies still with nausea she says that will come in cycles and when she is at home then will take warm shower- she smokes marijuana in regular basis Review of Systems Review of Systems: All systems reviewed & are unremarkable except as noted in HPI and below Exam Const: General: comfortable and no acute distress HENMT: Face/Nose/Sinus: Normal nares present Eyes: General: appearance normal, both eyes and all related structures Neck: Neck: no JVD Resp: Auscultation: clear to auscultation bilaterally Cardio: Rate: regular rate Rhythm: regular rhythm GI: Inspection: non-distended GI Palp: Yes Soft to palpation and No Tenderness to palpation present (GI) Auscultation: normal bowel sounds Skin: General skin exam: normal color Neuro: General: gait normal Speech: normal speech Extrem: General: normal to inspection Psych: Mental Status: mental status grossly normal Objective Data Vital Signs Vital Signs: Vital Signs - 24 hr 07/24/24 20:00 07/24/24 21:05 07/25/24 06:45 Temperature 98.1 F 97.6 F Pulse Rate 113 H 111 H Respiratory Rate 16 18 Blood Pressure 158/98 H 176/98 H Pulse Oximetry 99 100 Oxygen Delivery Room Air 07/25/24 08:00 07/25/24 14:00 Temperature 97.1 F L Pulse Rate 110 H Respiratory Rate 18 Blood Pressure 174/122 H Pulse Oximetry 97 Oxygen Delivery Room Air Intake/Output Intake/Output: Intake & Output 07/22/24 07/23/24 07/24/24 07/25/24 23:59 23:59 23:59 23:59 Intake Total 2250 3030 722 Balance 2250 3030 722 Meds/Results Medications: Active Medications Generic Name Dose Route Start Last Admin Trade Name Freq PRN Reason Stop Dose Admin Amlodipine Besylate 10 mg 07/25/24 15:16 07/25/24 15:41 Amlodipine Besylate 10 Mg Tablet PO 10 mg DAILY MARCELINO Administration Calcium Carbonate 200 mg 07/25/24 15:16 07/25/24 15:41 Calcium Carbonate (Tums) 500 Mg (200 Mg Elemental) PO 200 mg Q6H PRN Administration Indigestion Dicyclomine HCl 20 mg 07/23/24 20:19 07/25/24 08:53 Dicyclomine Hcl 10 Mg Capsule PO 20 mg QID PRN Administration Abdominal Cramping Enoxaparin Sodium 40 mg 07/24/24 09:00 07/25/24 08:53 Enoxaparin 40 Mg/0.4 Ml Syringe SUB-Q 40 mg DAILY MARCELINO Administration Hydralazine HCl 10 mg 07/24/24 14:51 07/25/24 14:59 Hydralazine Hcl 20 Mg/Ml Vial IV PUSH 10 mg Q6H PRN Administration Blood Pressure - High Hydromorphone HCl 0.5 mg 07/23/24 20:18 07/25/24 16:25 Hydromorphone Hcl Inj (*Crx) 1 Mg/Ml Syr IV PUSH 0.5 mg Q3H PRN Administration Pain Rated 7-10 Ceftriaxone Sodium 1 gm in 50 mls @ 100 mls/hr 07/23/24 10:05 07/25/24 09:23 Rocephin 1 Gm/Ns 50 Ml IVPB Infused QAM MARCELINO Infusion Metronidazole 500 mg in 100 mls @ 100 mls/hr 07/23/24 11:00 07/25/24 11:20 Flagyl
[2024-07-25] MEDS: MELATONIN 5 MG TABLET PO (20:09)
[2024-07-25 21:29] VITALS: BP 146/89; PULSE 115; RESP 14; TEMP 36.9; O2SAT 100
[2024-07-26] MEDS: ONDANSETRON INJ 4 MG/2 ML VIAL IV PUSH ×4 (02:36→21:41)
[2024-07-26] MEDS: HYDROmorphone HCL INJ (*CRX) 1 MG/ML SYR 0.5 MG IV PUSH ×7 (02:36→21:41)
[2024-07-26] MEDS: metroNIDAZOLE 500 MG/ISO 100ML 500 MG/100 ML BAG 100 MG IVPB ×3 (02:37→18:32)
[2024-07-26] MEDS: DICYCLOMINE HCL 10 MG CAPSULE 20 MG PO ×5 (03:41→21:50)
[2024-07-26] MEDS: PROMETHAZINE HCL 25 MG/ML AMPUL 12.5 MG IV PUSH (03:42)
[2024-07-26 06:00] VITALS: BP 173/103; PULSE 102; RESP 22; TEMP 36.6; O2SAT 100
[2024-07-26] MEDS: hydrALAZINE HCL 20 MG/ML VIAL 10 MG IV PUSH (06:00)
[2024-07-26 06:56] LABS: Hematocrit 38.8 % (37.0-47.0); Hemoglobin 12.4 g/dL (12.0-15.0); Mean Corpuscular Volume 84.3 fl (80-100); Mean Platelet Volume 9.3 fl (7.4-10.4); Platelet Count Result 396 k/mm3 (150-375); Red Cell Distribution Width 13.3 % (11.5-14.5); White Blood Count 7.1 K/mm3 (4.5-10.0)
[2024-07-26 07:12] LABS: Alanine Aminotransferase 15 U/L (6-35); Albumin Level 4.3 g/dL (3.5-5.1); Alkaline Phosphatase 54 U/L (38-126); Anion Gap 11 mmol/L (4-12); Aspartate Amino Transferase 26 U/L (14-36); Bilirubin,Total 0.6 mg/dL (0.2-1.3); Blood Urea Nitrogen 6 mg/dL (7-17); Calcium 9.2 mg/dL (8.4-10.2); Carbon Dioxide 28 mmol/L (22-30); Chloride 91 mmol/L (98-107); Estimated CRCL calculation 124 ml/min; Estimated Glomerular Filt Rate > 60; Glucose 97 mg/dL (65-110); Potassium 2.9 mmol/L (3.4-5.0); Sodium 130 mmol/L (137-145)
[2024-07-26 08:04] VITALS: BP 152/81
[2024-07-26] MEDS: amLODIPine BESYLATE 10 MG TABLET PO (08:06)
[2024-07-26] MEDS: SIMETHICONE 80 MG TAB.CHEW PO ×4 (08:06→21:42)
[2024-07-26] MEDS: PANTOPRAZOLE 40 MG TABLET PO (08:07)
--- NOTE | 2024-07-26 10:13 | WPDGIPROGNO ---
Progress Note: A&P Assessment and Plan (1) Cyclic vomiting syndrome: Code(s): R11.15 - Cyclical vomiting syndrome unrelated to migraine Status: Acute Assessment and Plan: presentation c/w cyclic vomiting needs to stop using marijuana continue supportive care with fluids, antiemetics egd negative when able to eat more then can go home today also hypokalemia- repleting (2) Marijuana dependence: Code(s): F12.20 - Cannabis dependence, uncomplicated Status: Acute (3) Abdominal pain: Code(s): R10.9 - Unspecified abdominal pain Status: Acute Assessment and Plan: I do not think that she has colitis but started empirically on abx, stool sample pending, discontinue soon probably we can do colonoscopy in few more weeks as outpatient (4) Uterine fibroid: Qualifiers: Uterine leiomyoma location: unspecified location Qualified Code(s): D25.9 - Leiomyoma of uterus, unspecified Code(s): D25.9 - Leiomyoma of uterus, unspecified Status: Acute (5) Hypokalemia: Code(s): E87.6 - Hypokalemia Status: Acute Assessment and Plan: repleting Subjective Date/time seen: 07/26/24 10:13 Interval history: still nausea but no vomiting not eating much Review of Systems Review of Systems: All systems reviewed & are unremarkable except as noted in HPI and below Exam Const: General: comfortable and no acute distress HENMT: Face/Nose/Sinus: Normal nares present Eyes: General: appearance normal, both eyes and all related structures Neck: Neck: no JVD Resp: Auscultation: clear to auscultation bilaterally Cardio: Rate: regular rate Rhythm: regular rhythm GI: Inspection: non-distended GI Palp: Yes Soft to palpation and No Tenderness to palpation present (GI) Auscultation: normal bowel sounds Skin: General skin exam: normal color Neuro: General: gait normal Speech: normal speech Extrem: General: normal to inspection Psych: Mental Status: mental status grossly normal Objective Data Vital Signs Vital Signs: Vital Signs - 24 hr 07/25/24 14:00 07/25/24 21:29 07/26/24 06:00 Temperature 97.1 F L 98.4 F 97.9 F Pulse Rate 110 H 115 H 102 H Respiratory Rate 18 14 22 H Blood Pressure 174/122 H 146/89 H 173/103 H Pulse Oximetry 97 100 100 07/26/24 08:04 Temperature Pulse Rate Respiratory Rate Blood Pressure 152/81 H Pulse Oximetry Intake/Output Intake/Output: Intake & Output 07/23/24 07/24/24 07/25/24 07/26/24 23:59 23:59 23:59 23:59 Intake Total 2250 3030 822 550 Balance 2250 3030 822 550 Meds/Results Medications: Active Medications Generic Name Dose Route Start Last Admin Trade Name Freq PRN Reason Stop Dose Admin Amlodipine Besylate 10 mg 07/25/24 15:16 07/26/24 08:06 Amlodipine Besylate 10 Mg Tablet PO 10 mg DAILY MARCELINO Administration Calcium Carbonate 200 mg 07/25/24 15:16 07/25/24 15:41 Calcium Carbonate (Tums) 500 Mg (200 Mg Elemental) PO 200 mg Q6H PRN Administration Indigestion Dicyclomine HCl 20 mg 07/23/24 20:19 07/26/24 08:06 Dicyclomine Hcl 10 Mg Capsule PO 20 mg QID PRN Administration Abdominal Cramping Enoxaparin Sodium 40 mg 07/24/24 09:00 07/26/24 08:07 Enoxaparin 40 Mg/0.4 Ml Syringe SUB-Q Not Given DAILY MACRELINO Hydralazine HCl 10 mg 07/24/24 14:51 07/26/24 06:00 Hydralazine Hcl 20 Mg/Ml Vial IV PUSH 10 mg Q6H PRN Administration Blood Pressure - High Hydromorphone HCl 0.5 mg 07/23/24 20:18 07/26/24 08:40 Hydromorphone Hcl Inj (*Crx) 1 Mg/Ml Syr IV PUSH 0.5 mg Q3H PRN Administration Pain Rated 7-10 Ceftriaxone Sodium 1 gm in 50 mls @ 100 mls/hr 07/23/24 10:05 07/26/24 08:07 Rocephin 1 Gm/Ns 50 Ml IVPB 100 mls/hr QAM MARCELINO Administration Metronidazole 500 mg in 100 mls @ 100 mls/hr 07/23/24 11:00 07/26/24 02:37 Flagyl 500 Mg/Iso Soln 100 Ml IVPB 100 mls/hr Q8H MARCELINO Administration
[2024-07-26] MEDS: POTASSIUM CHLORIDE 20 MEQ PACKET (FOR LIQUID) 40 MEQ PO (11:18)
[2024-07-26] MEDS: SODIUM CHLORIDE 0.9% IV 1,000 ML 100 ML IV CONT (12:54)
--- NOTE | 2024-07-26 13:45 | PM.IMPN ---
Progress Note: A&P Assessment and Plan (1) Acute dehydration: Code(s): E86.0 - Dehydration Status: Acute (2) Nausea & vomiting: Qualifiers: Vomiting type: bilious vomiting Qualified Code(s): R11.14 - Bilious vomiting Code(s): R11.2 - Nausea with vomiting, unspecified Status: Acute (3) Colitis: Code(s): K52.9 - Noninfective gastroenteritis and colitis, unspecified Status: Acute Plan # Colitis inflammatory vs infectious vs acyclic vomiting due to marijuana -underwent EGD today which shows no significant findings -started ceftriaxone and metronidazole -no history of using aspirin or NSAIDs -pantoprazole 40 mg every 12 hours -ordered stool studies ,calprotectin, H pylori, tissue transglutaminase -Bentyl 20 mg q.i.d. p.r.n. -Dilaudid 0.5 q.3 hours p.r.n. -patient pain medication will be de-escalated tomorrow -no evidence of pneumatosis of the wall of colon or perforation or abscess -surgery recommends medical management -consult GI and following the recommendation. -need to stop smoking marijuana # Abdominal Hernia OP f/u with surgery #Fibroid -patient is aware of the fibroid -follow-up with OB Gyne as an outpatient as per Supervisor Slate Splitting CT scan showed a large pedunculated fibroid Patient is aware of this fibroid. Patient states the fibroid has been asymptomatic for several years She denies any bleeding abnormalities 6.7 x 4.5 cm exophytic fibroid Seen on CT Pelvic ultrasound ordered for this a.m. to evaluate uterine fibroid further Discussed manage med options of uterine fibroids Patient declines hormonal contraceptives Discussed potential for myomectomy Would recommend resolution of colitis prior to performing any surgery Would recommend continuing p.o. pain medications on discharge Will discuss surgical management outpatient [facility] Impressions Abdomen/Pelvis CT 07/23/24 05:58 Impression: Questionable diffuse large bowel infectious/inflammatory colitis versus underdistention. 6.7 x 4.5 cm exophytic fibroid. Subjective Date/time seen: 07/26/24 13:45 Interval history: The patient was less anxious today but still complains of abdominal pain. Discussed the case with Dr. Gutiérrez also please patient symptoms are related to the chronic use of marijuana. Reviewed with the patient to stop smoking marijuana which can be 1 of the possibility of cyclic vomiting. Patient needs to follow up with OB Gyne for her fibroids and with the surgery for abdominal hernia on the left side abdomen. Review of Systems Review of Systems: All systems are reviewed and are negative unless stated otherwise in the HPI. Exam Narrative: General: Alert, awake, afebrile, in moderate distress, appears uncomfortable. HEENT: PERRL, no rhinorrhea, no post nasal drip, oropharynx clear. Neck: Trachea midline, no JVD, no lymphadenopathy. Cardiovascular: Regular rate and rhythm, no murmurs, rubs or gallops, no peripheral edema. Respiratory: Clear to auscultation bilaterally, no tachypnea, no wheezing, no rhonchi, no rubs, no respiratory distress. Abdomen: On palpation bulge on the left upper quadrant abdomen. Soft, nontender, nondistended, no rebound, no guarding, no peritoneal signs. Musculoskeletal: No joint swelling or deformity, normal muscle tone. Skin: No rashes or petechia, no signs of infection. Neurological: Alert and oriented to person, place, and time. Follows all commands. No focal deficits, speech is clear and fluent. Objective Data Vital Signs Vital Signs: Vital Signs - 24 hr 07/25/24 14:00 07/25/24 21:29 07/26/24 06:00 Temperature 97.1 F L 98.4 F 97.9 F Pulse Rate 110 H 115 H 102 H Respiratory Rate 18 14 22 H Blood Pressure 174/122 H 146/89 H 173/103 H Pulse Oximetry 97 100 100 Oxygen Delivery 07/26/24 08:04 07/26/24 08:05 Temperature Pulse Rate Respiratory Rate Blood Pressure 152/81 H Pulse Oximetry Oxygen Delivery Room Air
[2024-07-26 13:51] VITALS: BP 138/86; PULSE 110; RESP 18; TEMP 36.1; O2SAT 99
[2024-07-26 21:00] VITALS: BP 136/81; PULSE 105; RESP 20; TEMP 36.8; O2SAT 100
[2024-07-26] MEDS: MELATONIN 5 MG TABLET PO (21:42)
[2024-07-27] MEDS: ONDANSETRON INJ 4 MG/2 ML VIAL IV PUSH ×4 (01:40→23:57)
[2024-07-27] MEDS: HYDROmorphone HCL INJ (*CRX) 1 MG/ML SYR 0.5 MG IV PUSH ×2 (01:40→05:06)
[2024-07-27] MEDS: metroNIDAZOLE 500 MG/ISO 100ML 500 MG/100 ML BAG 100 MG IVPB ×3 (03:33→18:11)
[2024-07-27 04:13] LABS: Tissue Transglutaminase IgG Ab <1.0 U/mL
[2024-07-27 06:00] VITALS: BP 160/95; PULSE 104; RESP 22; TEMP 36.9; O2SAT 100
[2024-07-27] MEDS: hydrALAZINE HCL 20 MG/ML VIAL 10 MG IV PUSH (06:11)
[2024-07-27 07:06] LABS: Hematocrit 36.6 % (37.0-47.0); Hemoglobin 11.4 g/dL (12.0-15.0); Mean Corpuscular HGB Conc 31.1 g/dl (32-36); Mean Corpuscular Hemoglobin 26.5 pg (26-34); Mean Corpuscular Volume 85.1 fl (80-100); Mean Platelet Volume 9.3 fl (7.4-10.4); Platelet Count Result 380 k/mm3 (150-375); Red Cell Distribution Width 13.2 % (11.5-14.5); White Blood Count 6.9 K/mm3 (4.5-10.0)
[2024-07-27 08:00] LABS: Alanine Aminotransferase 12 U/L (6-35); Alkaline Phosphatase 43 U/L (38-126); Anion Gap 10 mmol/L (4-12); Aspartate Amino Transferase 23 U/L (14-36); Bilirubin,Total 0.6 mg/dL (0.2-1.3); Blood Urea Nitrogen 5 mg/dL (7-17); Calcium 8.9 mg/dL (8.4-10.2); Carbon Dioxide 29 mmol/L (22-30); Chloride 92 mmol/L (98-107); Estimated CRCL calculation 124 ml/min; Estimated Glomerular Filt Rate > 60; Glucose 94 mg/dL (65-110); Potassium 2.7 mmol/L (3.4-5.0); Sodium 131 mmol/L (137-145)
--- NOTE | 2024-07-27 08:20 | PM.IMPN ---
Progress Note: A&P Assessment and Plan (1) Acute dehydration: Code(s): E86.0 - Dehydration Status: Acute (2) Nausea & vomiting: Qualifiers: Vomiting type: bilious vomiting Qualified Code(s): R11.14 - Bilious vomiting Code(s): R11.2 - Nausea with vomiting, unspecified Status: Acute (3) Colitis: Code(s): K52.9 - Noninfective gastroenteritis and colitis, unspecified Status: Acute Plan acyclic vomiting due to marijuana -underwent EGD today which shows no significant findings -started ceftriaxone and metronidazole -no history of using aspirin or NSAIDs -pantoprazole 40 mg every 12 hours -ordered stool studies ,calprotectin, H pylori, tissue transglutaminase -Bentyl 20 mg q.i.d. p.r.n. -dc Dilaudid 0.5 q.3 hours p.r.n. -patient pain medication will be de-escalated tomorrow -no evidence of pneumatosis of the wall of colon or perforation or abscess -surgery recommends medical management Appreciate GI consultation Advised patient to stop smoking marijuana Start Toradol IV 15 mg IV push once and q.6 hours p.r.n. Hypokalemia Potassium 2.7, replete with potassium chloride 40 mg IV once and 40 b.i.d. p.o. Follow-up BMP, magnesium phosphorus Abdominal Hernia OP f/u with surgery #Fibroid -patient is aware of the fibroid -follow-up with OB Gyne as an outpatient as per Epidemiology Internship CT scan showed a large pedunculated fibroid Patient is aware of this fibroid. Patient states the fibroid has been asymptomatic for several years She denies any bleeding abnormalities 6.7 x 4.5 cm exophytic fibroid Seen on CT Pelvic ultrasound ordered for this a.m. to evaluate uterine fibroid further Discussed manage med options of uterine fibroids Patient declines hormonal contraceptives Discussed potential for myomectomy Recommend portion possible with OBGYN of patient Subjective Date/time seen: 07/27/24 08:20 Interval history: Saw examined the patient today, patient still has nausea vomiting, diffuse abdomen pain. Poor intake, labs showed hypokalemia, hyponatremia. Showed AFib are blood pressure stable Exam Narrative: GENERAL: Pleasant, in no acute distress. Well-nourished. - EYES: EOMI. Anicteric. - HENT: Moist mucous membranes. - LUNGS: Clear to auscultation bilaterally, no wheezing, rhonchi, or rales. - CARDIOVASCULAR: Regular rate and rhythm. No murmur. No JVD. - ABDOMEN: Soft, mid abdominal tender and non-distended. No palpable masses. - EXTREMITIES: No edema. Peripheral pulses 2+. Non-tender. - NEUROLOGIC: No focal neurological deficits. CN II-XII grossly intact. - PSYCHIATRIC: Awake, Alert and oriented x 3. Appropriate mood and affect. - SKIN: No rashes or lesions. Warm. - LYMPH: No cervical lymphadenopathy. Objective Data Vital Signs Vital Signs: Vital Signs - 24 hr 07/26/24 13:51 07/26/24 21:00 07/27/24 06:00 Temperature 97.0 F L 98.2 F 98.4 F Pulse Rate 110 H 105 H 104 H Respiratory Rate 18 20 22 H Blood Pressure 138/86 136/81 160/95 H Pulse Oximetry 99 100 100 Intake/Output Intake/Output: Intake & Output 07/24/24 07/25/24 07/26/24 07/27/24 23:59 23:59 23:59 23:59 Intake Total 3030 1822 1900 100 Balance 3030 1822 1900 100 Meds/Results Medications: Active Medications Generic Name Dose Route Start Last Admin Trade Name Freq PRN Reason Stop Dose Admin Amlodipine Besylate 10 mg 07/25/24 15:16 07/26/24 08:06 Amlodipine Besylate 10 Mg Tablet PO 10 mg DAILY MARCELINO Administration Calcium Carbonate 200 mg 07/25/24 15:16 07/25/24 15:41 Calcium Carbonate (Tums) 500 Mg (200 Mg Elemental) PO 200 mg Q6H PRN Administration Indigestion Dicyclomine HCl 20 mg 07/23/24 20:19 07/26/24 21:50 Dicyclomine Hcl 10 Mg Capsule PO 20 mg QID PRN Administration Abdominal Cramping Enoxaparin Sodium 40 mg 07/24/24 09:00 07/26/24 08:07 Enoxaparin 40 Mg/0.4 Ml Syringe SUB-Q Not Given DAILY [facility] Hydralazin
[2024-07-27 08:43] LABS: Magnesium 1.8 mg/dL (1.6-2.3)
[2024-07-27] MEDS: KCL 40 MEQ/0.9% SOD CHL 1,000 ML 100 ML IV CONT (09:29)
[2024-07-27] MEDS: KETOROLAC 15 MG/ML VIAL (*BKC) IV PUSH ×3 (09:30→21:15)
[2024-07-27] MEDS: ENOXAPARIN 40 MG/0.4 ML SYRINGE SUB-Q (09:30)
[2024-07-27] MEDS: amLODIPine BESYLATE 10 MG TABLET PO (09:30)
[2024-07-27] MEDS: PANTOPRAZOLE 40 MG TABLET PO (09:31)
[2024-07-27] MEDS: POTASSIUM CHLORIDE 20 MEQ ER TABLET 40 MEQ PO (09:31)
[2024-07-27] MEDS: SIMETHICONE 80 MG TAB.CHEW PO ×4 (09:31→20:40)
[2024-07-27] MEDS: DICYCLOMINE HCL 10 MG CAPSULE 20 MG PO ×2 (13:09→21:15)
[2024-07-27] MEDS: CALCIUM CARBONATE (TUMS) 500 MG (200 MG ELEMENTAL) PO (13:22)
[2024-07-27 14:00] VITALS: BP 139/82; PULSE 118; RESP 14; TEMP 36.6; O2SAT 100
[2024-07-27] MEDS: oxyCODONE/ACETAMINOPHEN (*CRX) 5-325 MG TABLET 1 TABLET PO ×2 (18:11→23:56)
[2024-07-27 20:37] VITALS: BP 151/98; PULSE 119; RESP 18; TEMP 36.7; O2SAT 100
[2024-07-27] MEDS: MELATONIN 5 MG TABLET PO (20:41)
[2024-07-28] MEDS: metroNIDAZOLE 500 MG/ISO 100ML 500 MG/100 ML BAG 100 MG IVPB ×2 (03:58→10:49)
[2024-07-28] MEDS: oxyCODONE/ACETAMINOPHEN (*CRX) 5-325 MG TABLET 1 TABLET PO ×3 (04:58→17:21)
[2024-07-28] MEDS: DICYCLOMINE HCL 10 MG CAPSULE 20 MG PO ×3 (04:58→15:10)
[2024-07-28 05:06] VITALS: BP 151/115; PULSE 124; TEMP 36.4; O2SAT 20
[2024-07-28 08:14] LABS: Magnesium 1.7 mg/dL (1.6-2.3); Phosphorus 3.7 mg/dL (2.5-4.5)
--- NOTE | 2024-07-28 08:31 | PM.IMPN ---
Progress Note: A&P Assessment and Plan (1) Acute dehydration: Code(s): E86.0 - Dehydration Status: Acute (2) Nausea & vomiting: Qualifiers: Vomiting type: bilious vomiting Qualified Code(s): R11.14 - Bilious vomiting Code(s): R11.2 - Nausea with vomiting, unspecified Status: Acute (3) Colitis: Code(s): K52.9 - Noninfective gastroenteritis and colitis, unspecified Status: Acute Plan acyclic vomiting due to marijuana -underwent EGD today which shows no significant findings -started ceftriaxone and metronidazole -no history of using aspirin or NSAIDs -pantoprazole 40 mg every 12 hours -ordered stool studies ,calprotectin, H pylori, tissue transglutaminase -Bentyl 20 mg q.i.d. p.r.n. -dc Dilaudid 0.5 q.3 hours p.r.n. -no evidence of pneumatosis of the wall of colon or perforation or abscess -surgery recommends medical management Appreciate GI consultation Advised patient to stop smoking marijuana Start Toradol IV 15 mg IV push once and q.6 hours p.r.n. Advanced to regular diet as tolerable Hypokalemia Potassium 2.7, replete with potassium chloride 40 mg IV once and 40 b.i.d. p.o. 07/27 07/28 potassium 3.0 sodium 131 replete with potassium chloride 40 mEq IV and 40 p.o. sodium chloride supplement Follow-up BMP p.m. magnesium phosphorus within normal limit Abdominal Hernia OP f/u with surgery #Fibroid -patient is aware of the fibroid -follow-up with OB Gyne as an outpatient as per [employer] CT scan showed a large pedunculated fibroid Patient is aware of this fibroid. Patient states the fibroid has been asymptomatic for several years She denies any bleeding abnormalities 6.7 x 4.5 cm exophytic fibroid Seen on CT Pelvic ultrasound ordered for this a.m. to evaluate uterine fibroid further Discussed manage med options of uterine fibroids Patient declines hormonal contraceptives Discussed potential for myomectomy Recommend portion possible with OBGYN of patient Discharge patient tomorrow if patient can not tolerate diet Subjective Date/time seen: 07/28/24 08:31 Interval history: Saw examined the patient today, patient feels better today, still has nausea, abdomen pain is tolerable. Poor intake, labs showed hypokalemia, hyponatremia that a trending up. Patient is afebrile, blood pressure stable, Exam Narrative: GENERAL: Pleasant, in no acute distress. Well-nourished. - EYES: EOMI. Anicteric. - HENT: Moist mucous membranes. - LUNGS: Clear to auscultation bilaterally, no wheezing, rhonchi, or rales. - CARDIOVASCULAR: Regular rate and rhythm. No murmur. No JVD. - ABDOMEN: Soft, mid abdominal tender and non-distended. No palpable masses. - EXTREMITIES: No edema. Peripheral pulses 2+. Non-tender. - NEUROLOGIC: No focal neurological deficits. CN II-XII grossly intact. - PSYCHIATRIC: Awake, Alert and oriented x 3. Appropriate mood and affect. - SKIN: No rashes or lesions. Warm. - LYMPH: No cervical lymphadenopathy. Objective Data Vital Signs Vital Signs: Vital Signs - 24 hr 07/27/24 14:00 07/27/24 09:30 07/27/24 20:37 Temperature 97.9 F 98.1 F Pulse Rate 118 H 119 H Respiratory Rate 14 18 Blood Pressure 139/82 151/98 H Pulse Oximetry 100 100 Oxygen Delivery Room Air 07/27/24 20:00 07/28/24 05:06 Temperature 97.6 F Pulse Rate 124 H Respiratory Rate Blood Pressure 151/115 H Pulse Oximetry 20 L Oxygen Delivery Room Air Intake/Output Intake/Output: Intake & Output 07/25/24 07/26/24 07/27/24 07/28/24 23:59 23:59 23:59 23:59 Intake Total 1822 2900 688 390 Balance 1822 2900 688 390 Meds/Results Medications: Active Medications Generic Name Dose Route Start Last Admin Trade Name Freq PRN Reason Stop Dose Admin Amlodipine Besylate 10 mg 07/25/24 15:16 07/27/24 09:30 Amlodipine Besylate 10 Mg Tablet PO 10 mg DAILY MARCELINO Administration Calcium Carbonate 200 mg 07/25/24 15:16 07/27/24 13:22 Calcium
[2024-07-28] MEDS: amLODIPine BESYLATE 10 MG TABLET PO (08:50)
[2024-07-28] MEDS: SIMETHICONE 80 MG TAB.CHEW PO ×4 (08:50→20:57)
[2024-07-28] MEDS: KETOROLAC 15 MG/ML VIAL (*BKC) IV PUSH ×2 (08:51→15:10)
[2024-07-28] MEDS: PANTOPRAZOLE 40 MG TABLET PO (08:51)
[2024-07-28] MEDS: ENOXAPARIN 40 MG/0.4 ML SYRINGE SUB-Q (08:52)
[2024-07-28 09:31] LABS: Anion Gap 11 mmol/L (4-12); Blood Urea Nitrogen 5 mg/dL (7-17); Calcium 9.6 mg/dL (8.4-10.2); Carbon Dioxide 29 mmol/L (22-30); Chloride 91 mmol/L (98-107); Estimated CRCL calculation 124 ml/min; Estimated Glomerular Filt Rate > 60; Glucose 97 mg/dL (65-110); Magnesium 1.7 mg/dL (1.6-2.3); Phosphorus 3.7 mg/dL (2.5-4.5); Sodium 131 mmol/L (137-145)
[2024-07-28] MEDS: SODIUM CHLORIDE 0.9% IV 1,000 ML 100 ML IV CONT (10:49)
[2024-07-28] MEDS: POTASSIUM CHLORIDE INJ 40 MEQ in SODIUM CHLORIDE 0.9% IV 500 ML 130 MEQ IVPB (10:49)
[2024-07-28] MEDS: POTASSIUM CHLORIDE 20 MEQ ER TABLET 40 MEQ PO (10:50)
[2024-07-28] MEDS: SODIUM CHLORIDE 1 GM TABLET 2 GM PO ×2 (10:50→17:21)
[2024-07-28 14:00] VITALS: BP 131/82; PULSE 102; RESP 19; TEMP 36.3; O2SAT 97
[2024-07-28 17:01] LABS: Potassium 3.4 mmol/L (3.4-5.0); Sodium 131 mmol/L (137-145)
[2024-07-28 20:41] VITALS: BP 136/90; PULSE 122; RESP 16; TEMP 37.3; O2SAT 98
[2024-07-28] MEDS: ONDANSETRON INJ 4 MG/2 ML VIAL IV PUSH (20:57)
[2024-07-28] MEDS: AMOXICILLIN/CLAVULANATE K 875-125 MG TAB 1 TABLET PO (20:58)
[2024-07-28] MEDS: MELATONIN 5 MG TABLET PO (20:58)
--- NOTE | 2024-07-29 | PC.NURSE ---
Patient c/o nausea/vomiting. zofran ineffective. Spoke with Suyapa RANDALL. New orders received to make NPO and she would put in dose for promethazine.
[2024-07-29] MEDS: PROMETHAZINE HCL 25 MG/ML AMPUL 12.5 MG IV PUSH (00:16)
[2024-07-29] MEDS: ONDANSETRON INJ 4 MG/2 ML VIAL IV PUSH (05:49)
[2024-07-29 06:00] VITALS: BP 158/113; PULSE 108; RESP 16; TEMP 36.6; O2SAT 100
[2024-07-29 07:03] LABS: Anion Gap 10 mmol/L (4-12); Blood Urea Nitrogen 6 mg/dL (7-17); Calcium 9.6 mg/dL (8.4-10.2); Carbon Dioxide 28 mmol/L (22-30); Chloride 95 mmol/L (98-107); Estimated CRCL calculation 124 ml/min; Estimated Glomerular Filt Rate > 60; Glucose 104 mg/dL (65-110); Magnesium 1.7 mg/dL (1.6-2.3); Phosphorus 3.3 mg/dL (2.5-4.5); Potassium 3.2 mmol/L (3.4-5.0); Sodium 133 mmol/L (137-145)
[2024-07-29 07:48] VITALS: BP 145/86
[2024-07-29] MEDS: amLODIPine BESYLATE 10 MG TABLET PO (09:58)
[2024-07-29] MEDS: AMOXICILLIN/CLAVULANATE K 875-125 MG TAB 1 TABLET PO (09:58)
[2024-07-29] MEDS: PANTOPRAZOLE 40 MG TABLET PO (09:58)
[2024-07-29] MEDS: DICYCLOMINE HCL 10 MG CAPSULE 20 MG PO (09:58)
[2024-07-29] MEDS: SIMETHICONE 80 MG TAB.CHEW PO ×2 (09:58→12:27)
[2024-07-29] MEDS: SODIUM CHLORIDE 1 GM TABLET 2 GM PO (09:58)
[2024-07-29] MEDS: SODIUM CHLORIDE 0.9% IV 1,000 ML 100 ML IV CONT (12:27)
[2024-07-29 14:00] VITALS: BP 152/110; PULSE 107; RESP 16; TEMP 36.3; O2SAT 100
--- NOTE | 2024-07-29 14:59 | PM.DS ---
DS: Admitting Diagnosis Discharge Date 07/29/24 Admitting Diagnosis vomiting DS: Discharge Diagnosis Discharge Diagnosis (1) Cyclic vomiting syndrome: Code(s): R11.15 - Cyclical vomiting syndrome unrelated to migraine Status: Acute (2) Nausea & vomiting: Qualifiers: Vomiting type: bilious vomiting Qualified Code(s): R11.14 - Bilious vomiting Code(s): R11.2 - Nausea with vomiting, unspecified Status: Acute DS: Summary Hospital Course Hospital Course: Patient is a 29-year-old female who presents to the emergency department complaining of nausea, vomiting, and abdominal pain which she rates it a 10/10. Patient admits that she has been struggling with these symptoms for over 4 years and states that any time the symptoms flare-up she is to come to the emergency department due to the pain and inability to tolerate p.o. intake. Patient admits to marijuana use but states that she developed the symptoms even before she started smoking marijuana. In the ED patient received 10 mg of IV Reglan, 50 mg of IV Benadryl and 2 mg IV morphine. She has been worked up for this multiple times and has an upcoming appointment with a etcher hand for an EGD and a colonoscopy. Patient reports of having sometimes watery bowel movement for the past few years. Denies any association with the blood. No family history of Crohn's disease or ulcerative colitis. No history of taking aspirin or ibuprofen. CT scan shows diffuse large mobile infectious/inflammatory colitis versus under distention. Patient is also has fibroid. Patient aware of the fibroid. Patient was started on antibiotic ceftriaxone and Flagyl. Patient still complains of pain in spite of receiving morphine. Gastroenterology has been consulted stated that patient does not have colitis, however patient completed abx, and will follow up with GI for colonoscopy. Vomiting resolved, patient tolerating diet. Discharged on Zofran ODT, continue f/u with PCP in 3-5 days F/u with PHARMACY SPECIALIST and Gi as instructed Assessment and Plan (1) Acute dehydration: Code(s): E86.0 - Dehydration Status: Acute (2) Nausea & vomiting: Qualifiers: Vomiting type: bilious vomiting Qualified Code(s): R11.14 - Bilious vomiting Code(s): R11.2 - Nausea with vomiting, unspecified Status: Acute (3) Colitis: Code(s): K52.9 - Noninfective gastroenteritis and colitis, unspecified Status: Acute Plan acyclic vomiting due to marijuana -underwent EGD today which shows no significant findings -started ceftriaxone and metronidazole -no history of using aspirin or NSAIDs -pantoprazole 40 mg every 12 hours -ordered stool studies ,calprotectin, H pylori, tissue transglutaminase -Bentyl 20 mg q.i.d. p.r.n. -dc Dilaudid 0.5 q.3 hours p.r.n. -no evidence of pneumatosis of the wall of colon or perforation or abscess contiue Protonix 40mg daily, ZOfran ODT F/u with GI as instructed Hypokalemia Potassium 2.7, replete with potassium chloride 40 mg IV once and 40 b.i.d. p.o. 07/27 07/28 potassium 3.0 sodium 131 replete with potassium chloride 40 mEq IV and 40 p.o. sodium chloride supplement Follow-up BMP p.m. magnesium phosphorus within normal limit Discharged on potassium 20mEq daily x 7 days Abdominal Hernia OP f/u with surgery #Fibroid -patient is aware of the fibroid -follow-up with OB Gyne as an outpatient as per Non [employer] CT scan showed a large pedunculated fibroid Patient is aware of this fibroid. Patient states the fibroid has been asymptomatic for several years She denies any bleeding abnormalities 6.7 x 4.5 cm exophytic fibroid Seen on CT Pelvic ultrasound ordered for this a.m. to evaluate uterine fibroid further Discussed manage med options of uterine fibroids Patient declines hormonal contraceptives Discussed potential for myomectomy referral to PHARMACY SPECIALIST F/u with PCP in 3-5 days F/u with PHARMACY SPECIALIST and GI as instructed Time Sp
== END 2024-07-29 16:15 | disposition home or self-care (01) | DRG 249 ==
LOC: ANHED 07-23 05:54 → ANH3MEDSUR 07-23 10:08
PROVIDERS: General Practice; Hospitalist; Internal Medicine Gastroenterology; Physician Assistant; Admitting Provider Internal Medicine; Emergency Provider Emergency Medicine; Visit Provider Internal Medicine
PROC: 0DJ08ZZ Inspection of Upper Intestinal Tract, Via Natural or Artificial Opening Endoscopic (ICD-10-PCS; CPT 43235; principal; 2024-07-24 12:30)
DX: R11.14 Bilious vomiting (principal); E86.0 Dehydration; D25.9 Leiomyoma of uterus, unspecified; T40.715A Adverse effect of cannabis, initial encounter; E87.6 Hypokalemia; K46.9 Unspecified abdominal hernia without obstruction or gangrene; F17.290 Nicotine dependence, other tobacco product, uncomplicated; K92.1 Melena; E87.1 Hypo-osmolality and hyponatremia; F12.20 Cannabis dependence, uncomplicated
CPT/HCPCS: 36415; 71045; 74177; 76830; 76856; 80048; 80053; 80307; 81001; 81025; 83605; 83690; 83735; 84100; 84132; 84295; 85025; 85027; 86364; 87045; 87427; 87449; 88305; 93005; 96361; 96372; 96374; 96375; 96376; 99285; A9270; G0378; J0360; J0500; J0696; J1170; J1200; J1650; J1836; J1885; J2060; J2270; J2405; J2470; J2550; J2704; J2765; J3480; J7030; J7040; J7120; Q9967